=== PATIENT | female | born 1995 | race Hispanic/Latino ===

== ENCOUNTER 2018-02-11 18:06 | Inpatient (IN) | payer MEDICAID, OTHER ==
[~2018-02-11] VITALS: Ht 162.6 cm; Wt 70.8 kg
[2018-02-11 19:45] VITALS: BP 117/70
[2018-02-11] MEDS ORDERED: PREN1TAB89 PO (19:45)
[2018-02-11] MEDS ORDERED: FERR-82 PO (19:45)
[2018-02-11 20:16] LABS: APPEARANCE,URINE Clear (CLEAR); BILIRUBIN,URINE Negative (NEGATIVE); COLOR,URINE Dark Yellow (YELLOW); GLUCOSE, URINE (UA) Negative (NEGATIVE); KETONES,URINE 15 mg/dL (NEGATIVE); LEUKOCYTE ESTERASE ,URINE Negative (NEGATIVE); NITRATE,URINE Negative (NEGATIVE); OCCULT BLOOD,URINE Negative (NEGATIVE); PROTEIN,URINE Trace (NEGATIVE)
[2018-02-11 20:33] LABS: MUCUS,URINE Few LPF (None Seen)
[2018-02-11 20:34] LABS: BACTERIA,URINE Rare /HPF (None Seen); RBC,URINE None Seen /HPF (0-1)
[2018-02-12] MEDS: LACTATED RINGERS 1000ML 1,000 ML IV PRN ×2 (00:45→06:18)
[2018-02-12 00:54] LABS: HEMATOCRIT 34.2 % (36-48); MEAN CORPUSCULAR HEMOGLOBIN 28.7 pg (27.0-33.0); MEAN CORPUSCULAR HGB CONC 34.3 g/dL (32.0-36.0); MEAN CORPUSCULAR VOLUME 83.6 fL (80-100); PLATELET COUNT (AUTO) 195 K/uL (130-400); RED BLOOD CELL COUNT(AUTO) 4.09 MIL/uL (4.00-5.50); RED CELL DISTRIBUTION WIDTH 14.6 % (11.0-15.5); WHITE BLOOD COUNT (AUTO) 9.2 K/uL (4.8-10.8)
[2018-02-12] MEDS ORDERED: LACTATED RINGERS 1000ML 1,000 ML IV ONE (03:35)
[2018-02-12] MEDS ORDERED: OXYTOCIN 10 USP UNITS/ML ONE ×2 (03:36→11:28)
[2018-02-12] MEDS ORDERED: OXYTOCIN 10 USP UNITS/ML 20 UNIT in LACTATED RINGERS 1000ML 1,000 ML IV SCH (04:00)
[2018-02-12] MEDS ORDERED: PROMETHAZINE HCL 25 MG/ML 1ML AMPULE IM PRN (07:15)
[2018-02-12] MEDS ORDERED: MEPERIDINE-PF 50 MG/ML SYG IVP PRN (07:15)
[2018-02-12] MEDS ORDERED: LACTATED RINGERS 500 ML 500 ML IV PRN (11:00)
[2018-02-12] MEDS ORDERED: EPHEDRINE SULFATE 50 MG/ML AMPULE IVP PRN (11:00)
[2018-02-12] MEDS ORDERED: NALOXONE HCL 0.4 MG/1 ML ML IV PRN (11:00)
[2018-02-12] MEDS ORDERED: MEASLES/MUMPS/RUBELLA VACCINE, LIVE 0.5 ML/VIAL SQ PRN (12:00)
[2018-02-12] MEDS ORDERED: DIPH,PERTUSS(ACELL),TET VAC/PF 0.5 ML VIAL IM PRN (12:00)
[2018-02-12] MEDS ORDERED: BENZOCAINE/LANOLIN/ALOE VERA 60 ML AEROSOL TP PRN (12:00)
[2018-02-12] MEDS ORDERED: OXYTOCIN-LR 20 UNITS/1000 ML 1,000 ML IV SCH (12:00)
[2018-02-12] MEDS ORDERED: ACETAMINOPHEN 325 MG TAB PO PRN (12:00)
[2018-02-12] MEDS ORDERED: WITCH HAZEL 1 PAD TP PRN (12:00)
[2018-02-12] MEDS ORDERED: LANOLIN 30GM OINTMENT TP PRN (12:00)
[2018-02-12 16:35] VITALS: BP 105/68
[2018-02-12] MEDS: IBUPROFEN 800 MG TAB PO PRN (17:47)
[2018-02-12 20:51] VITALS: BP 113/53
[2018-02-12] MEDS: DOCUSATE SODIUM 100 MG CAP PO SCH (21:05)
[2018-02-13 00:22] VITALS: BP 111/55
[2018-02-13] MEDS: IBUPROFEN 800 MG TAB PO PRN (03:45)
[2018-02-13 04:10] VITALS: BP 101/63
[2018-02-13 05:46] LABS: HEMATOCRIT 33.6 % (36-48); MEAN CORPUSCULAR HEMOGLOBIN 28.2 pg (27.0-33.0); MEAN CORPUSCULAR HGB CONC 33.5 g/dL (32.0-36.0); MEAN CORPUSCULAR VOLUME 84.2 fL (80-100); PLATELET COUNT (AUTO) 189 K/uL (130-400); RED BLOOD CELL COUNT(AUTO) 3.99 MIL/uL (4.00-5.50); RED CELL DISTRIBUTION WIDTH 14.8 % (11.0-15.5); WHITE BLOOD COUNT (AUTO) 9.1 K/uL (4.8-10.8)
[2018-02-13 07:36] VITALS: BP 108/72
[2018-02-13 08:21] LABS: HEPATITIS Bs ANTIGEN SCREEN P Negative (Negative)
[2018-02-13] MEDS: DOCUSATE SODIUM 100 MG CAP PO SCH (08:54)
[2018-02-13 11:34] VITALS: BP 98/60
== END 2018-02-13 13:05 | disposition home or self-care (01) | DRG 775 ==
LOC: LDH 18:06 → WSH 02-12 16:35
PROVIDERS: ADMIT Obstetrics & Gynecology; ATTEND Obstetrics & Gynecology
PROC: 0KQM0ZZ Repair Perineum Muscle, Open Approach (ICD-10-PCS; principal; 2018-02-12)
PROC: 10E0XZZ Delivery of Products of Conception, External Approach (ICD-10-PCS; 2018-02-12)
PROC: 10907ZC Drainage of Amniotic Fluid, Therapeutic from Products of Conception, Via Natural or Artificial Opening (ICD-10-PCS; 2018-02-12)
PROC: 3E033VJ Introduction of Other Hormone into Peripheral Vein, Percutaneous Approach (ICD-10-PCS; 2018-02-12)
PROC: 3E0234Z Introduction of Serum, Toxoid and Vaccine into Muscle, Percutaneous Approach (ICD-10-PCS; 2018-02-12)
PROC: 3E0134Z Introduction of Serum, Toxoid and Vaccine into Subcutaneous Tissue, Percutaneous Approach (ICD-10-PCS; 2018-02-12)
DX: O70.1 Second degree perineal laceration during delivery (principal); Z37.0 Single live birth; Z23 Encounter for immunization; Z3A.38 38 weeks gestation of pregnancy
CPT/HCPCS: 36415; 81001; 85027; 86592; 86850; 86900; 86901; 87340; 90715; A4351; J2175; J2550; J2590; J7120